=== PATIENT | male | born 1995 | race Caucasian/White ===

== ENCOUNTER 2017-03-15 18:22 | Emergency (ER) | payer MEDICAID ==
[~2017-03-15] VITALS: Ht 188 cm; Wt 77.1 kg
--- OUTSIDE RECORDS SUMMARY | 2017-03-15 18:51 | External Medical Summary Rpt | CCD ---
Author Author SUSAN Address Unknown Phone Purpose Continuity of Care Document - 01-30-2016 through 2016
--- OUTSIDE RECORDS SUMMARY | 2017-03-15 18:51 | External Medical Summary Rpt | CCD ---
Author Author SUSAN Address Unknown Phone [email or web address] Purpose Continuity of Care Document - through 2016
--- OUTSIDE RECORDS SUMMARY | 2017-03-15 18:51 | External Medical Summary Rpt | CCD ---
Author Author SUSAN Address Unknown Phone [email or web address] Purpose Continuity of Care Document - through 2016
--- OUTSIDE RECORDS SUMMARY | 2017-03-15 18:52 | External Medical Summary Rpt ---
Author Author SUSAN Huber, [employer] Organization [employer] Address Unknown Phone Unavailable Results XRAY KNEE 3 VIEW LEFT* Observa Value Referen Units Interpr Notes Date tion ce etation Range DATE OF No No No No Jan 29 EXAM: informa informa informa informa 2015Jan 29 tion in tion in tion in tion in 10:57 2015\.b source source source source AM r\CLINI data data data data DEEPA HISTORY :\.br\ trauma\ .br\Dep artment : TXR - 5228\.b r\Proce dure: XRAY KNEE 3 VIEW LEFT* 67699\. br\RESU LT: Routine views demonst rate no evidenc e of fractur e or\.br\ disloca tion. Joint spaces are well maintai tamiko. There is no evidenc e of\.br\ effusio n. No intra-a rticula r loose bodies are demonst rated.\ .br\IMP RESSION : Normal knee.\. br\Dict ation Locatio n No: 1\.br\D ictatio n Date/Ti me: 01/30/16 10:55 a.m.\.b r\Adelaida d By: CORINE MOODY MD on at 12:05
--- OUTSIDE RECORDS SUMMARY | 2017-03-15 18:52 | External Medical Summary Rpt | CCD ---
Demographics Preferred Language Portuguese Marital Status Unknown Church Affiliation Unknown Race Unknown Ethnic Group Unknown Author Author , SUSAN DAVIS Address Unknown Phone Immunization No patient found.
--- OUTSIDE RECORDS SUMMARY | 2017-03-15 18:52 | External Medical Summary Rpt | CCD ---
Demographics Preferred Language Lao Marital Status Unknown Restorationism Affiliation Unknown Race Unknown Ethnic Group Unknown Author Author , SUSAN DAVIS Address Unknown Phone Immunization No patient found.
--- OUTSIDE RECORDS SUMMARY | 2017-03-15 18:52 | External Medical Summary Rpt ---
[...] r\Proce dure: XRAY KNEE 3 VIEW LEFT* 03207\. br\RESU LT: Routine views demonst rate no [...]
[2017-03-15 19:09] LABS: URINE BILIRUBIN - DIPSTICK NEGATIVE (NEG); URINE BLOOD NEGATIVE (NEG)
[2017-03-15 19:29] LABS: HEMOGLOBIN 15.5 g/dL (14.1-18.0); LYMPH # 1.7 K/mm3 (0.7-4.5)
--- NOTE | 2017-03-15 20:14 | Emergency Room Report ---
History of Present Illness Time Seen by 1999 Presenting Problem in Triage Pt arrived:Walked Presenting Problem:PT REPORTS L SIDED ABD PAIN X1 WEEK. DENIES N/V/D. Onset of symptoms date/time:03/08/17/ or onset unknown for:MEDICAL HX UNKNOWN Treatment Prior to Arrival: IT ASSISTANT Provided by: Sepsis Risk Assessment: Temp: 98.4 B/P: 125/73 MAP: 98 Pulse: 58 Resp: 14 Recent fever? N Clinical Suspician of Infection? N Mental Status: 1 - Regular (Normal Baseline) Sepsis Risk:Low Sepsis Risk Have you (or family members/close friends) recently traveled outside the [place]? N If Yes, where/when: Have you had exposure to infectious disease within the past month? TB? Other? Specify: Source patient, RN notes reviewed, old records Exam Limitations no limitations Comment pt with lt upper abd pain with nausea but no fever or rt lower abd pain - no etoh Cardiac Chest Pain Chest pain indicative of cardiac No Timing/Duration this evening Severity moderate ALLERGIES Coded Allergies: No Known Allergies (03/15/17) Home Medications Reported Medications No Known Home Medications History Medical History General CAD? No Angina: No PA: No Hypertension? No Hyperlipidemia? No CHF? No DVT? No PE? No COPD? No Asthma? No Anemia? No GERD? No Gastric ulcers? No GI Bleed? No Hernia? No Thyroid Problems? No Hypothyroidism? No CVA? No Seizures? No Diabetes? No Renal Insuffiency? No End Stage Renal Disease? No UTI? No Stones? No GB Disease: No Nephritic Syndrome? No Asplenia? No Hepatitis? No Sickle Cell Disease? No Arthritis? No Migraines? No Cataracts? No Glaucoma? No MRSA? No HIV? No TB? No Anxiety? No Depression? Yes Cancer? No More? No Immunization Hx DT/Tetanus Unknown Surgical Hx Previous Surgery?N Social History Smoking Hx Smoker: Current Every Day Smoker Tobacco: Yes Type Cigarettes Alcohol Alcohol: No Drugs none Review of Systems All Other Systems Reviewed and Negative Constitutional denies fever Eyes denies drainage ENT denies: ear discharge, epistaxis, throat pain. Respiratory denies cough, denies shortness of breath, denies wheezing Cardiovascular denies chest pain, denies syncope Gastrointestinal see HPI, abdominal pain, nausea, denies vomiting Genitourinary denies: dysuria, frequency, hesitancy, hematuria. Musculoskeletal denies back pain, denies joint pain, denies joint swelling, denies neck pain Skin denies rash Psychiatric/Neurological denies headache, denies seizure Physical Exam Vital Signs Vital Signs Date Time Temp Pulse Resp B/P Pulse O2 O2 Flow FiO2 Ox Delivery Rate 03/15 2129 98.4 56 14 156/70 98 03/15 2127 56 14 156/70 98 03/15 2005 58 14 125/73 98 03/159 98.4 71 18 148/73 97 03/15 1830 98.5 74 18 133/75 98 - WBC >12,000 or <4,000 or 10% bands? 2 or more SIRS Criteria Met? B/P:125/73 MAP:98 Creatinine >2.0? UA output<0.5ml/kg/hr for 2 hrs? Platelet count >100,000? Lactate >2.0mmol/1? INR >1.2 or PTT > than 60 sec? Evidence of Organ Dysfunction? Provider documented clinical suspician of infection? N Sepsis Criteria Count: 0 Sepsis Risk: Low Sepsis Risk General Appearance no apparent distress Eye Exam - bilateral eye PERRL, bilateral eye EOMI Ear, Nose, Throat normal ENT inspection Neck supple Respiratory Status No: respiratory distress. Lung Sounds bilateral: lungs clear. 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 No Results/Orders Laboratory Tests 03/15/170: Sodium 141, Potassium 3.8, Chloride 105, Carbon Dioxide 29, BUN 11, Creatinine 0.9, Estimated Creat Clear 139, Estimated GFR (MDRD) 105, Glucose 84, Calcium 9.2, Total Bilirubin 0.3, AST 14 L, ALT 20, Alkaline Phosphatase 87, Total Protein 7.6, Albumin 4.7, Globulin 2.9, Albumin/Globulin Ratio 1.6, Amylase 77, Lipase 604 H, WBC 8.2, RBC 5.12, Hgb 15.5, Hct 46.2, MCV 90.2, RDW 12.1, Plt Count 205, MPV 8.2, Gran % 70.7, Gran # 5.8, Lymphocytes % 21.0, Monocytes % 5.0 , Eosinophils % 3.0, Basophils % 0.4, Lymphocytes # 1.7, Monocytes # 0.4, Eosinophils # 0.3, Basophils # 0.0, PUBS MCHC 33.5, MCH 30.2 03/15/171854: Urine Color YELLOW, Urine Appearance CLEAR, Urine pH 6.5, Ur Specific [place] 1.010, Urine Protein NEGATIVE, Urine Ketones NEGATIVE, Urine Blood NEGATIVE, Urine Nitrate NEGATIVE, Urine Bilirubin NEGATIVE, Urine Urobilinogen 0.2, Ur Leukocyte Esterase NEGATIVE, Urine RBC NONE, Urine WBC NONE, Ur Squamous Epith Cells NONE, Urine Bacteria NONE, Urine Glucose NEGATIVE Current Medication Orders Sig/Karina Start time Last Medication Dose Route Stop Time Status Admin Sodium Chloride 10 ML PRN PRN 03/15 1915 AC IV 03/16 1911 Orders Procedure Date/time Status DIET-NOTHING BY MOUTH 03/[address] ABD & PELVIS W/O CONTRAST 03/[address] SCAN REQ 03/15 2015 Complete IV SALINE LOCK 03/15 1911 Active LIPASE 03/15 1910 Complete CBC WITH AUTO DIFF 03/15 1910 Complete CHEM 12 PROFILE 03/15 1910 Complete AMYLASE 03/15 1910 Complete URINALYSIS/COMPLETE 03/15 1854 Complete XRAY/CT/US XRAY/CT/US CT abdomen, pelvis CT interpretation by discussed w/radiologist Time results known: 2128 CT Results abnormal Comment possible appendecitis Departure Departure Time of Disposition 2122 Disposition DC Home or Self Care(routine) Clinical Impression Primary Impression: Abdominal pain Qualifiers: Abdominal location: left upper quadrant Qualified Code: R10.12 - Left upper quadrant pain Secondary Impressions: Elevated lipase Condition STABLE Referrals Nikunj Hernandez MD Patient Instructions DI for Acute Abdomen Additional Instructions will recheck in am Discharge Counseling Counseled pt/family regarding diagnosis, test results, medications/RX, follow up needs Prescriptions Current Visit Scripts No Known Home Medications ED Critical Care Critical Care No at 2132
[2017-03-15 21:29] VITALS: BP 156/70
--- NOTE | 2017-03-16 21:18 | RADIOLOGY REPORT PS360 ---
CT ABD PELVIS W/O CONTRAST CLINICAL INDICATION: Generalized abdominal pain ABD PAIN ORDERING PHYSICIAN: Agustin Graff MD PATIENT AGE: 21 years COMPARISON: None TECHNIQUE: Axial images obtained with sagittal and coronal reformats. PROCEDURE: Oral Contrast: None IV Contrast: None . FINDINGS: The lung bases are clear. The liver, spleen, adrenal glands, pancreas, kidneys, ureters, urinary bladder evident unremarkable appearance. The gallbladder is contracted with mild thickening of the wall which is nonspecific. No intestinal obstruction or free air. The proximal aspect of the appendix is slightly prominent and fluid-filled. This is of questionable clinical significance. There may be some minimal stranding of the fat in the periappendiceal region. Repeat exam with IV and oral contrast may provide further evaluation if clinically warranted. No abscess or perforation. No free fluid. No acute bony anomalies. IMPRESSION: There is minimal prominence of the appendix which is fluid-filled proximally with some questionable stranding of the fat in the right lower quadrant. This is inconclusive for appendicitis. Please correlate clinically. Repeating exam with IV and oral contrast may be of further value if clinically warranted.
== END 2017-03-15 21:39 | disposition home or self-care (01) ==
LOC: UTC 18:22 → ER 18:22
PROVIDERS: Emergency Medicine
DX: R10.12 Left upper quadrant pain (principal)

== ENCOUNTER 2017-03-16 16:40 | Emergency (ER) | payer MEDICAID ==
[~2017-03-16] VITALS: Ht 188 cm; Wt 79.4 kg
--- OUTSIDE RECORDS SUMMARY | 2017-03-16 16:51 | External Medical Summary Rpt | CCD ---
Author Author [employer] Organization [employer] Address Unknown Phone Unavailable Purpose Continuity of Care Document - through 2016
--- OUTSIDE RECORDS SUMMARY | 2017-03-16 16:51 | External Medical Summary Rpt | CCD ---
Author Author , SUSAN DAVIS Address Unknown Phone [email or web address] Purpose Continuity of Care Document - 01-30-2016 through 2016 Problems Code Diagnosis DOS Provider Status R10.9 UNSPECIFIED ABDOMINAL PAIN R74.8 ABNORMAL LEVELS OF OTHER SERUM ENZYMES Results Labs Lab Lab Date Result Refere Interp Status Commen Order Detail nces retati t Range on Lipase measurement (03-15-2017 19:20) Lipase = 604 73-393 complet measure 017 U/L ed ment 19:20 Comment: NOTIFICATION RESULT Comprehensive metabolic panel (03-15-2017 19:20) Protein = 7.6 6.4-8.2 complet total 017 gm/dL ed ser/thee 19:20 s ALT = 20 12-78 complet (SGPT) 017 U/L ed ser/thee 19:20 s Serum = 14 15-37 complet or 017 U/L ed plasma 19:20 asparta te aminotr ansfera Serum = 141 136-145 complet sodium 017 mmoL/L ed measure 19:20 ment Serum = 3.8 3.5-5.1 complet potassi 017 mmoL/L ed um 19:20 measure ment Serum = 84 74-106 complet or 017 mg/dL ed plasma 19:20 glucose measure ment (mas Serum = 2.9 1.3-3.2 complet globuli 017 gm/dL ed n 19:20 measure ment (mass/v olume) Estimat = 105 >60 complet ed 017 ML/MIN ed glomeru 19:20 lar filtrat ion rate (GF Comment: REFERENCE RANGE: >60 ML/MIN/1.73 SQUARE METERS Comment: If this patient is -[place], then multiply the Comment: result by 1.210. Estimat = 139 50-200 complet ion of 017 ML/MIN ed creatin 19:20 ine renal clearan ce Serum = 0.9 0.70-1. complet or 017 mg/dL 30 ed plasma 19:20 creatin ine measure ment ( Carbon = 29 21.0-32 complet dioxide 017 mmoL/L .0 ed 19:20 measure ment Serum = 105 98-107 complet or 017 mmoL/L ed plasma 19:20 chlorid e measure ment (mo Serum = 9.2 8.5-10. complet or 017 mg/dL 1 ed plasma 19:20 calcium measure ment (mas Serum = 11 7-18 complet or 017 mg/dL ed plasma 19:20 urea nitroge n measure men Serum = 0.3 0.2-1.0 complet or 017 mg/dL ed plasma 19:20 total bilirub in measure m Serum = 87 46-116 complet or 017 U/L ed plasma 19:20 alkalin e phospha tase radha Serum = 4.7 3.4-5.0 complet or 017 gm/dL ed plasma 19:20 albumin measure ment (mas Serum = 1.6 1.1-1.8 complet or 017 ed plasma 19:20 albumin /globul in mass ra Amylase ser/plas (03-15-2017 19:20) Amylase = 77 25-115 complet 017 U/L ed ser/thee 19:20 s CBC w auto diff (03-15-2017 19:20) Blood = 46.2 42.0-52 complet hematoc 017 % .0 ed rit 19:20 (volume fractio n) Granulo = 70.7 37.0-80 complet cyte 017 % .0 ed percent 19:20 age Blood = 5.8 1.3-8.0 complet granulo 017 K/mm3 ed cytes 19:20 automat ed count (numb Automat = 3.0 % 0.1-12. complet ed 017 0 ed blood 19:20 eosinop hils/10 0 leukocy t Automat = 0.3 0.0-0.4 complet ed 017 K/mm3 ed blood 19:20 eosinop hil count Baso % = 0.4 % 0.1-2.0 complet 017 ed 19:20 Automat = 0.0 0-0.2 complet ed 017 K/MM3 ed blood 19:20 basophi l count (count/ vo Absolut = 1.7 0.7-4.5 complet e 017 K/mm3 ed lymphoc 19:20 yte count Blood = 8.2 4.8-10. complet leukocy 017 K/MM3 8 ed gerardo 19:20 count (number /volume ) Automat = 12.1 11.5-17 complet ed 017 % .5 ed erythro 19:20 cyte distrib ution width Red = 5.12 4.6-6.2 complet blood 017 M/mm3 ed cell 19:20 count Blood = 205 142-424 complet platele 017 K/mm3 ed t count 19:20 Automat = 8.2 7.4-10. complet ed 017 fl 4 ed blood 19:20 platele t mean volume radha [place] % = 5.0 % 1.7-9.3 complet 017 ed 19:20 Absolut = 0.4 0.1-1.0 complet e 017 K/mm3 ed monocyt 19:20 e count Automat = 90.2 82.2-97 complet ed 017 fl .8 ed erythro 19:20 cyte mean corpusc ular v Automat = 33.5 31.8-35 complet ed 017 g/dl .4 ed erythro 19:20 cyte mean corpusc ular h Mean = 30.2 27-31.2 complet corpusc 017 pg ed ular 19:20 hemoglo bin (MCH) determ Lymphoc = 21.0 10-50 complet yte 017 % ed count, 19:20 blood, automat ed Blood = 15.5 14.1-18 complet hemoglo 017 g/dL .0 ed bin 19:20 measure ment (mass/v olum Urinalysis with microscopy (03-15-2017 18:55) Urine NEGATIV NEG complet blood 017 E ed detecti 18:55 NEGATIV on E L Urine NEGATIV NEG complet total 017 E ed bilirub 18:55 NEGATIV in E L detecti on by test Urine = NONE O complet leukocy 017 wbc/hpf ed gerardo 18:55 count (number /volume ) Urine 0.2 0.2 NEG complet urobili 017 L ed nogen 18:55 E.U./dL detecti on by test str [place] NONE OCC complet s 017 NONE L ed epithel 18:55 #/hpf ial cells detecti on in u Urine = 1.010 1.005-1 complet specifi 017 .030 ed c 18:55 gravity measure ment Erythro NONE 0 complet cytes 017 NONE L ed detecti 18:55 rbc/hpf on in urine sedimen t Urine = NEG complet protein 017 NEGATIV ed 18:55 E mg/dL measure ment by automat ed t Urine = 6.5 5.0-8.5 complet pH 017 ed 18:55 Urine NEGATIV NEG complet nitrite 017 E ed 18:55 NEGATIV detecti E L on by test strip Mucus NEGATIV NEG complet detecti 017 E ed on in 18:55 NEGATIV urine E L sedimen t by lig Urine NEGATIV NEG complet ketones 017 E ed 18:55 NEGATIV detecti E L on by mg/dL automat ed gerardo Glucose = NEG complet ur 017 NEGATIV ed test 18:55 E strip Urine YELLOW YELLOW complet color 017 YELLOW ed 18:55 L Bacteri NONE O complet a 017 NONE L ed detecti 18:55 on in urine sedimen t by Urine CLEAR CLEAR complet appeara 017 CLEAR L ed nce 18:55 determi nation Urinalysis dipstick W Reflex Microscopic panel in Urine (03-15-2017 18:55) Bacteri NONE O complet a 017 ed [Presen 18:55 ce] in Urine sedimen t by Light microsc opy Erythro 11-14-2 NONE 0 complet cytes 017 ed [Presen 18:55 ce] in Urine sedimen t by Light microsc opy Epithel 11-14-2 NONE OCC complet ial 017 ed cells.s 18:55 quamous [Presen ce] in Urine sedimen t by Microsc opy high power field Urinalysis dipstick W Reflex Microscopic panel in Urine (03-15-2017 18:55) Appeara --2 CLEAR CLEAR complet nce of 017 ed Urine 18:55 Bilirub -14-2 NEGATIV NEG complet in 017 E ed [Presen 18:55 ce] in Urine by Test strip Erythro 11-14-2 NEGATIV NEG complet cytes 017 E ed [Presen 18:55 ce] in Urine Color -14-2 YELLOW YELLOW complet of 017 ed Urine 18:55 Ketones -14-2 NEGATIV NEG complet 017 E ed [Presen 18:55 ce] in Urine by Automat ed test strip Mucus 11-14-2 NEGATIV NEG complet [Presen 017 E ed ce] in 18:55 Urine sedimen t by Light microsc opy Nitrite -14-2 NEGATIV NEG complet 017 E ed [Presen 18:55 ce] in Urine by Test strip Urobili 11-14-2 0.2 NEG complet nogen 017 ed [Presen 18:55 ce] in Urine by Test strip
--- OUTSIDE RECORDS SUMMARY | 2017-03-16 16:51 | External Medical Summary Rpt | CCD ---
Author Author , SUSAN DAVSI Address Unknown Phone [email or web address] Purpose Continuity of Care Document - 01-30-2016 [...] SQUARE METERS Comment: If this patient is -[place]ra[place], then multiply the Comment: result by 1.210. [...] blood 19:20 platele t mean volume radha [place] % = 5.0 % 1.7-9.3 complet 017 [...]
--- OUTSIDE RECORDS SUMMARY | 2017-03-16 16:51 | External Medical Summary Rpt | CCD ---
Demographics Preferred Language Chinese Marital Status Unknown Moravian Affiliation Unknown Race Unknown Ethnic Group Unknown Author Author , SUSAN DAVIS Address Unknown Phone Immunization No patient found.
--- OUTSIDE RECORDS SUMMARY | 2017-03-16 16:51 | External Medical Summary Rpt | CCD ---
Demographics Preferred Language Croatian Marital Status Unknown Buddhist Affiliation Unknown Race Unknown Ethnic Group Unknown Author Author , SUSAN DAVIS Address Unknown Phone Immunization No patient found.
--- OUTSIDE RECORDS SUMMARY | 2017-03-16 16:52 | External Medical Summary Rpt ---
Author Author SUSAN Huber, [employer] Organization [employer] Address Unknown Phone Unavailable Results Amylase [Enzymatic activity/volume] in Serum or Plasma Observa Value Referen Units Interpr Notes Date tion ce etation Range Amylase 25 - 115 U/L Normal No Mar 15 [Enzymati informati 2017 7:20 c on in PM activity/ source volume] data in Serum or Plasma Comprehensive metabolic 2000 panel in Serum or Plasma Observa Value Referen Units Interpr Notes Date tion ce etation Range Albumin/G 1.1 - 1.8 No Normal No Mar 15 lobulin informati informati 2016 7:20 [Mass on in on in PM ratio] in source source Serum or data data Plasma Albumin 3.4 - 5.0 gm/dL Normal No Mar 15 [Mass/vol informati 2016 7:20 ume] in on in PM Serum or source Plasma data Alkaline 46 - 116 U/L Normal No Mar 15 phosphata informati 2016 7:20 se on in PM [Enzymati source c data activity/ volume] in Serum or Plasma Bilirubin 0.2 - 1.0 mg/dL Normal No Mar 15 .total informati 2016 7:20 [Mass/vol on in PM ume] in source Serum or data Plasma Urea 7 - 18 mg/dL Normal No Mar 15 nitrogen informati 2016 7:20 [Mass/vol on in PM ume] in source Serum or data Plasma Calcium 8.5 - mg/dL Normal No Mar 15 [Mass/vol 10.1 informati 2016 7:20 ume] in on in PM Serum or source Plasma data Chloride 98 - 107 mmoL/L Normal No Mar 15 [Moles/vo informati 2016 7:20 lume] in on in PM Serum or source Plasma data Carbon 21.0 - mmoL/L Normal No Mar 15 dioxide, 32.0 informati 2017 7:20 total on in PM [Moles/vo source lume] in data Serum or Plasma Creatinin 0.70 - mg/dL Normal No Mar 15 e 1.30 informati 2017 7:20 [Mass/vol on in PM ume] in source Serum or data Plasma Creatinin 50 - 200 ML/MIN Normal No Mar 15 e renal informati 2016 7:20 clearance on in PM source predicted data by Cockcroft -Gault formula Estimated >60 ML/MIN No REFERENCE Mar 15 informati RANGE: 2017 7:20 glomerula on in >60 PM r source ML/MIN/1. filtratio data 73 SQUARE n rate METERSIf (GF this patient is -A merican, then multiply theresult by 1.210. Globulin 1.3 - 3.2 gm/dL Normal No Mar 15 [Mass/vol informati 2016 7:20 ume] in on in PM Serum source data Glucose 74 - 106 mg/dL Normal No Mar 15 [Mass/vol informati 2016 7:20 ume] in on in PM Serum or source Plasma data Potassium 3.5 - 5.1 mmoL/L Normal No Mar 15 inform2016 7:20 [Moles/vo on in PM lume] in source Serum or data Plasma Sodium 136 - 145 mmoL/L Normal No Mar 15 [Moles/vo informati 2016 7:20 lume] in on in PM Serum or source Plasma data Aspartate 15 - 37 U/L Low No Mar 15 informati 2016 7:20 aminotran on in PM sferase source [Enzymati data c activity/ volume] in Serum or Plasma Alanine 12 - 78 U/L Normal No Mar 15 aminotran informati 2016 7:20 sferase on in PM [Enzymati source c data activity/ volume] in Serum or Plasma Protein 6.4 - 8.2 gm/dL Normal No Mar 15 [Mass/vol informati 2016 7:20 ume] in on in PM Serum or source Plasma data Lipase [Enzymatic activity/volume] in Serum or Plasma Observa Value Referen Units Interpr Notes Date tion ce etation Range Lipase 73 - 393 U/L High Mar 15 [Enzymati NOTIFICAT 2016 7:20 c ION PM activity/ RESULT volume] in Serum or Plasma CBC W Auto Differential panel in Blood Observa Value Referen Units Interpr Notes Date tion ce etation Range Basophils 0 - 0.2 K/MM3 Normal No Mar 15 informati 2016 7:20 [#/volume on in PM ] in source Blood by data Automated count Basophils 0.1 - 2.0 % Normal No Mar 15 informati 2016 7:20 leukocyte on in PM s in source Blood by data Automated count Eosinophi 0.0 - 0.4 K/mm3 Normal No Mar 15 ls informati 2016 7:20 [#/volume on in PM ] in source Blood by data Automated count Eosinophi 0.1 - % Normal No Mar 15 ls/100 12.0 informati 2016 7:20 leukocyte on in PM s in source Blood by data Automated count Granulocy 1.3 - 8.0 K/mm3 Normal No Mar 15 gerardo informati 2016 7:20 [#/volume on in PM ] in source Blood by data Automated count Granulocy 37.0 - % Normal No Mar 15 gerardo/100 80.0 informati 2016 7:20 leukocyte on in PM s in source Blood by data Automated count Hematocri 42.0 - % Normal No Mar 15 t [Volume 52.0 informati 2016 7:20 on in PM Fraction] source of Blood data Hemoglobi 14.1 - g/dL Normal No Mar 15 n 18.0 informati 2016 7:20 [Mass/vol on in PM ume] in source Blood data Lymphocyt 0.7 - 4.5 K/mm3 Normal No Mar 15 es informati 2016 7:20 [#/volume on in PM ] in source Unspecifi data ed specimen by Automated count Lymphocyt 10 - 50 % Normal No Mar 15 es 2016 7:20 [#/volume on in PM ] in source Unspecifi data ed specimen by Automated count Erythrocy 27 - 31.2 pg Normal No Mar 15 te mean informati 2016 7:20 corpuscul on in PM ar source hemoglobi data n [Entitic mass] Erythrocy 31.8 - g/dl Normal No Mar 15 te mean 35.4 informati 2016 7:20 corpuscul on in PM ar source hemoglobi data n concentra tion [Mass/vol ume] by Automated count Erythrocy 82.2 - fl Normal No Mar 15 te mean 97.8 informati 2016 7:20 corpuscul on in PM ar volume source [Entitic data volume] by Automated count Monocytes 0.1 - 1.0 K/mm3 Normal No Mar 15 informati 2016 7:20 [#/volume on in PM ] in source Blood by data Automated count Monocytes 1.7 - 9.3 % Normal No Nov 14 /100 informati 2016 7:20 leukocyte on in PM s in source Blood by data Automated count Platelet 7.4 - fl Normal No Mar 15 mean 10.4 ati 2016 7:20 volume on in PM [Entitic source volume] data in Blood by Automated count Platelets 142 - 424 K/mm3 Normal No Mar 152016 7:20 [#/volume on in PM ] in source Blood data Erythrocy 4.6 - 6.2 M/mm3 Normal No Mar 15 gerardo informati 2016 7:20 [#/volume on in PM ] in source Amniotic data fluid Erythrocy 11.5 - % Normal No Mar 15 te 17.5 informati 2016 7:20 distribut on in PM ion width source [Entitic data volume] by Automated count Leukocyte 4.8 - K/MM3 Normal No Mar 15 s 10.8 ati 2016 7:20 [#/volume on in PM ] in source Blood data Urinalysis dipstick W Reflex Microscopic panel in Urine Observa Value Referen Units Interpr Notes Date tion ce etation Range Appeara CLEAR CLEAR No No No Mar 15 nce of informa informa informa 2016 Urine tion in tion in tion in 6:55 PM source source source data data data Bacteri NONE O No No No Mar 15 a informa informa informa 2016 [Presen tion in tion in tion in 6:55 PM ce] in source source source Urine data data data sedimen t by Light microsc opy Bilirub NEGATIV NEG No No No Mar 15 in E informa informa informa 2016 [Presen tion in tion in tion in 6:55 PM ce] in source source source Urine data data data by Test strip Erythro NEGATIV NEG No No No Mar 15 cytes E informa informa informa 2016 [Presen tion in tion in tion in 6:55 PM ce] in source source source Urine data data data Color YELLOW YELLOW No No No Mar 15 of informa informa informa 2016 Urine tion in tion in tion in 6:55 PM source source source data data data Glucose NEG No No No Mar 15 [Mass/vol informati informati informati 2016 6:55 ume] in on in on in on in PM Urine by source source source Test data data data strip Ketones NEGATIV NEG mg/dL No No Nov 14 E informa informa 2016 [Presen tion in tion in 6:55 PM ce] in source source Urine data data by Automat ed test strip Mucus NEGATIV NEG No No No Mar 14 [Presen E informa informa informa 2016 ce] in tion in tion in tion in 6:55 PM Urine source source source sedimen data data data t by Light microsc opy Nitrite NEGATIV NEG No No No Mar 15 E informa informa informa 2016 [Presen tion in tion in tion in 6:55 PM ce] in source source source Urine data data data by Test strip pH of 5.0 - 8.5 No Normal No Mar 14 Urine informati informati 2017 6:55 on in on in PM source source data data Protein NEG mg/dL No No Mar 15 [Mass/vol informati informati 2017 6:55 ume] in on in on in PM Urine by source source Automated data data test strip Erythro NONE 0 rbc/hpf No No Mar 15 cytes informa informa 2016 [Presen tion in tion in 6:55 PM ce] in source source Urine data data sedimen t by Light microsc opy Specific 1.005 - No Normal No Mar 14 gravity 1.030 informati informati 2017 6:55 of Urine on in on in PM source source data data Epithel NONE OCC #/hpf No No Mar 15 ial informa informa 2017 cells.s tion in tion in 6:55 PM quamous source source data data [Presen ce] in Urine sedimen t by Microsc opy high power field Urobili 0.2 NEG E.U./dL No No Mar 14 nogen informa informa 2016 [Presen tion in tion in 6:55 PM ce] in source source Urine data data by Test strip Leukocyte O wbc/hpf No No Mar 14 s informati informati 2017 6:55 [#/volume on in on in PM ] in source source Urine data data Urinalysis dipstick W Reflex Microscopic panel in Urine Observa Value Referen Units Interpr Notes Date tion ce etation Range Appeara CLEAR CLEAR No No No Mar 14 nce of informa informa informa 2017 Urine tion in tion in tion in 6:55 PM source source source data data data Bilirub NEGATIV NEG No No No Mar 15 in E informa informa informa 2016 [Presen tion in tion in tion in 6:55 PM ce] in source source source Urine data data data by Test strip Erythro NEGATIV NEG No No No Mar 14 cytes E informa informa informa 2016 [Presen tion in tion in tion in 6:55 PM ce] in source source source Urine data data data Color YELLOW YELLOW No No No Mar 15 of informa informa informa 2016 Urine tion in tion in tion in 6:55 PM source source source data data data Glucose NEG No No No Mar 15 [Mass/vol informati informati informati 2016 6:55 ume] in on in on in on in PM Urine by source source source Test data data data strip Ketones NEGATIV NEG mg/dL No No Mar 15 E informa informa 2016 [Presen tion in tion in 6:55 PM ce] in source source Urine data data by Automat ed test strip Mucus NEGATIV NEG No No No Mar 15 [Presen E informa informa informa 2016 ce] in tion in tion in tion in 6:55 PM Urine source source source sedimen data data data t by Light microsc opy Nitrite NEGATIV NEG No No No Mar 15 E informa informa informa 2016 [Presen tion in tion in tion in 6:55 PM ce] in source source source Urine data data data by Test strip pH of 5.0 - 8.5 No Normal No Mar 14 Urine informati informati 2016 6:55 on in on in PM source source data data Protein NEG mg/dL No No Mar 15 [Mass/vol informati informati 2016 6:55 ume] in on in on in PM Urine by source source Automated data data test strip Specific 1.005 - No Normal No Mar 14 gravity 1.030 informati informati 2016 6:55 of Urine on in on in PM source source data data Urobili 0.2 NEG E.U./dL No No Mar 14 nogen informa informa 2016 [Presen tion in tion in 6:55 PM ce] in source source Urine data data by Test strip XRAY KNEE 3 VIEW LEFT* Observa Value Referen Units Interpr Notes Date tion ce etation Range DATE OF No No No No Sep 30 EXAM: informa informa informa informa 2015Jan 29 tion in tion in tion in tion in 10:57 2016\.b source source source source AM r\CLINI data data data data DEEPA HISTORY :\.br\ trauma\ .br\Dep artment : TXR - 5228\.b r\Proce dure: XRAY KNEE 3 VIEW LEFT* 10214\. br\RESU LT: Routine views demonst rate no [...]
--- OUTSIDE RECORDS SUMMARY | 2017-03-16 16:52 | External Medical Summary Rpt ---
[...] r\Proce dure: XRAY KNEE 3 VIEW LEFT* 64546\. br\RESU LT: Routine views demonst rate no [...]
--- NOTE | 2017-03-16 16:54 | Emergency Room Report ---
History of Present Illness Time Seen by [id number] Presenting Problem in Triage Pt arrived:Walked Presenting Problem:PAIN WITH INSPIRATION PT PRESENTED WITH IT LAST NIGHT AND INCIDENTALLY FOUND AN APPENDIX ISSUE Onset of symptoms date/time:/ or onset unknown for:MEDICAL HX UNKNOWN Treatment Prior to Arrival: [employer] Provided by: Sepsis Risk Assessment: Temp: 98.3 B/P: 146/67 MAP: 93 Pulse: 69 Resp: 18 Recent fever? N Clinical Suspician of Infection? N Mental Status: 1 - Regular (Normal Baseline) Sepsis Risk:Low Sepsis Risk Have you (or family members/close friends) recently traveled outside the [place]? N If Yes, where/when: Have you had exposure to infectious disease within the past month? TB? Other? Specify: Source patient, RN notes reviewed, family, RN/MD Exam Limitations no limitations Comment This is a 21-year-old male patient arriving to the emergency room with LEFT upper quadrant abdominal pain for the past 10 days. Patient denies any nausea, fever, chills or diarrhea. He was seen in the emergency room last night when he had a noncontrast CT revealed an enlarged appendix and he was advised to return for a contrast study today. He states his pain is similar to the discomfort he experienced yesterday, not worse. ALLERGIES Coded Allergies: No Known Allergies (03/16/17) Home Medications Reported Medications No Known Home Medications History Medical History General CAD? No Angina: No MN: No Hypertension? No Hyperlipidemia? No CHF? No DVT? No PE? No COPD? No Asthma? No Anemia? No GERD? No Gastric ulcers? No GI Bleed? No Hernia? No Thyroid Problems? No Hypothyroidism? No CVA? No Seizures? No Diabetes? No Renal Insuffiency? No End Stage Renal Disease? No UTI? No Stones? No GB Disease: No Nephritic Syndrome? No Asplenia? No Hepatitis? No Sickle Cell Disease? No Arthritis? No Migraines? No Cataracts? No Glaucoma? No MRSA? No HIV? No TB? No Anxiety? No Depression? Yes Cancer? No More? No Immunization Hx Ped.Immunizations UTD Yes DT/Tetanus Unknown Surgical Hx Previous Surgery?N Social History Smoking Hx Smoker: Never Smoker Tobacco: No Alcohol Alcohol: No Review of Systems All Other Systems Reviewed and Negative Gastrointestinal see HPI, abdominal pain (LUQ), denies diarrhea, denies nausea, denies vomiting Physical Exam Vital Signs Vital Signs Date Time Temp Pulse Resp B/P Pulse O2 O2 Flow FiO2 Ox Delivery Rate 03/169 58 18 120/100 98 03/16 1906 97.5 58 18 120/100 98 03/16 1811 97.5 58 18 120/100 98 03/16 1648 98.3 69 18 146/67 99 03/16 164 97.7 67 18 146/67 98 General Appearance normal appearance, WD/WN, no apparent distress Respiratory Status Yes: trachea midline, chest symmetrical, non tender chest. No: respiratory distress. Lung Sounds bilateral: normal breath sounds, lungs clear. Cardiovascular normal exam, regular rate/rhythm, no peripheral edema, no gallop, no JVD, no murmur, no rub, normal peripheral pulses Gastrointestinal normal bowel sounds, soft, no organomegaly, tenderness (LUQ) Extremities non-tender, normal range of motion, normal inspection Neurologic alert, armhole sewer II-XII nml as tested, normal exam, oriented x 3 Mental status normal mood/affect Skin intact, normal color, warm/dry Medical Decision Making LABS/Meds/Orders Pt receiving controlled substance in ED? No Comment 1729-case discussed Dr. Juan Starkey, who has reviewed arturo fims, unconvinced of acute appendicits, recommended clinical correlation 1909-paged dr Hernandez 1929-case discussed with , advised of presentation and findings, lack of fever, lack of white count, recommended patient to be discharged home and to follow-up with his office on Tuesday morning. If worse in the meanwhile patient will of course return promptly to this, same, emergency room for evaluation. I've explained to the patient in great detail the CT scan findings obtained today, he discrepancy with his clinical presentation. Results/Orders Laboratory Tests 03/16/17 1700: Sodium 140, Potassium 3.6, Chloride 105, Carbon Dioxide 28, BUN 9, Creatinine 0.9, Estimated Creat Clear 143, Estimated GFR (MDRD) 105, Glucose 115 H, Calcium 9.0, Total Bilirubin 0.4, AST 17, ALT 20, Alkaline Phosphatase 80, Total Protein 7.2, Albumin 4.4, Globulin 2.8, Albumin/Globulin Ratio 1.6, Amylase 60, Lipase 533 H, WBC 5.3, RBC 4.99, Hgb 15.2, Hct 45.3, MCV 90.9, RDW 12.2, Plt Count 192, MPV 8.3, Gran % 65.2, Gran # 3.5, Lymphocytes % 27.0, Monocytes % 4.5 , Eosinophils % 2.9, Basophils % 0.4, Lymphocytes # 1.4, Monocytes # 0.2, Eosinophils # 0.2, Basophils # 0.0, PUBS MCHC 33.6, MCH 30.5 03/16/17 1656: Urine Color Cancelled, Urine Appearance Cancelled, Urine pH Cancelled, Ur Specific [place] Cancelled Current Medication Orders Sig/Karina Start time Last Medication Dose Route Stop Time Status Admin Iopamidol 75 ML ONCE ONE 03/16 1845 DCD 03/16 IV 03/16 1846 1840 Sodium Chloride 10 ML ONCE ONE 03/16 184 DCD 03/16 IV 03/16 184 1841 Diatrizoate Meglum/ 30 ML ONCE ONE 03/16 1700 DC 03/16 Diatrizoate Sod PO 03/16 1701 1659 Sodium Chloride 10 ML PRN PRN 03/16 1700 DCD IV 03/17 1656 Diatrizoate Meglum/ 0 .STK-MED ONE 03/16 1643 DC Diatrizoate Sod .ROUTE Orders Procedure Date/time Status CT ABD & PELVIS W/ CONTRAST 03/[address] ABD/PELVIS REQ 03/16 165 Complete IV SALINE LOCK 03/16 165 Active LIPASE 03/16 165 Complete CBC WITH AUTO DIFF 03/16 165 Complete CHEM 12 PROFILE 03/16 1656 Complete AMYLASE 03/16 165 Complete XRAY/CT/US XRAY/CT/US CT abdomen, pelvis (with oral and IV contrast) CT interpretation by discussed w/radiologist CT Results radiologist believes the patient has findings consistent with acute early appendicitis, given in largest appendix 8.2 mm, fluid filled Departure Departure Time of Disposition 1933 Disposition DC Home or Self Care(routine) Clinical Impression Primary Impression: LUQ abdominal pain Condition STABLE Referrals Nikunj Hernandez MD: 2 Days-Call Office This called the office in the morning in order to schedule follow-up this Tuesday Patient Instructions DI for Abdominal Pain-Adult Additional Instructions Please drink plenty of fluids, alternate Motrin and Tylenol for pain control, if any new symptoms (fever, nausea, vomiting) or pain getting worse please return promptly to the emergency room for reevaluation. Please see Dr. Hernandez in the office on Tuesday. Discharge Counseling Counseled pt/family regarding diagnosis, test results, medications/RX, home care, follow up needs Comment Please drink plenty of fluids, alternate Motrin and Tylenol for pain control, if any new symptoms (fever, nausea, vomiting) or pain getting worse please return promptly to the emergency room for reevaluation. Please see Dr. Hernandez in the office on Tuesday. Prescriptions Current Visit Scripts No Known Home Medications ED Critical Care Critical Care No at 2000
[2017-03-16 17:05] LABS: HEMOGLOBIN 15.2 g/dL (14.1-18.0); LYMPH # 1.4 K/mm3 (0.7-4.5)
[2017-03-16 19:39] VITALS: BP 120/100
--- NOTE | 2017-03-17 05:21 | RADIOLOGY REPORT PS360 ---
CT ABD PELVIS W/ CONTRAST CLINICAL INDICATION: Right lower quadrant pain, periumbilical pain ABD PAIN, inconclusive unenhanced CT ORDERING PHYSICIAN: Chris Mcdaniel MD PATIENT AGE: 21 years COMPARISON: 03/15/2017 TECHNIQUE: Axial images obtained with sagittal and coronal reformats. PROCEDURE: Oral Contrast: Gastroview IV Contrast: 75 mL Isovue-[id number]. FINDINGS: The lung bases are clear. Liver, gallbladder, pancreas, adrenal glands, kidneys, ureters, and urinary bladder have an unremarkable appearance. No obstructing renal or ureteral calculi. There is mild thickening of the appendix with mild thickening and minimal enhancement of the appendiceal wall. The appendix measures up to nearly 9 mm in diameter. Small amount fluid is present centrally within the appendix. No abscess or perforation apparent. There may be some minimal stranding of the periappendiceal fat. No intestinal obstruction or free air. No abnormal fluid collections. No acute bony anomalies. IMPRESSION: Minimal thickening of the appendix with minimal amount fluid within the appendiceal lumen. These findings may be seen with mild/early acute appendicitis. Please correlate clinically. No abscess or perforation.
== END 2017-03-16 19:40 | disposition home or self-care (01) ==
LOC: ER 16:40
PROVIDERS: Emergency Medicine
DX: R10.12 Left upper quadrant pain (principal)